=== PATIENT | female | born 1970 | race Two or more races ===

== ENCOUNTER 2022-05-12 14:57 | Emergency (ER) | payer OTHER ==
[~2022-05-12] VITALS: Ht 160 cm; Wt 64.0 kg
[~2022-05-12 14:57] MED LIST: ANTIVERT25 M1 PO; KETO10TA2 PO; SEPTRA DS TABLE1 TAB PO
[2022-05-12] MEDS ORDERED: DICLOFENAC SODI75 MG PO (20:47)
== END 2022-05-12 20:58 | disposition home or self-care (01) ==
LOC: ER 14:57
DX: R10.31 Right lower quadrant pain (principal); K76.0 Fatty (change of) liver, not elsewhere classified